=== PATIENT | female | born 1935 | race Hispanic/Latino ===

== ENCOUNTER 2018-03-23 17:34 | Inpatient (IN) | payer MEDICARE, OTHER ==
[2018-03-23] MEDS ORDERED: Albuterol-Ipratrop 3 mg / 0.5 (3 ml) UD IH STA (17:51)
--- NOTE | 2018-03-23 18:17 | ED PDOC ---
Arrival/HPI - General Chief Complaint: Shortness Of Breath Historian: Patient - History of Present Illness Narrative History of Present Illness (Text): 03/23/18 18:06 82 y/o F w/ h/o presenting to the Emergency Department with complaint of shortness of breath ongoing for the past 5 days. The patient reports productive cough with yellow-greenish sputum, intermittent fevers & chills and wheezing. She reports seeing her PCP on Sunday where he diagnosed her with bronchitis and provided her with a short course of Amoxicillin PO to take for her symptoms. Despite taking her medications, she reports no alleviation in her symptoms. She denies any chest pain, dizziness, emesis, abdominal pain, syncopal episodes, sinus pain, headache or falls recently. She reports receiving her influenza and pneumococcus vacciness. She denies recent travel or being on supplemental oxygen at home. The patient received one Duoneb treatment per EMS prior to arrival in the ED. PCP: Dr. Gautam Time/Duration: < week (6 days) Symptom Onset: Gradual Symptom Course: Unchanged Severity Level: Moderate Activities at Onset: Rest Context: Home Past Medical History - Provider Review Nursing Documentation Reviewed: Yes - Travel History Have you recently traveled outside [place] w/in the past 3 mons?: No - Cardiac Hx Hypertension: Yes - Pulmonary Hx Respiratory Disorders: No - Neurological Hx Neurological Disorder: No - HEENT Hx HEENT Disorder: No - Renal Hx Renal Disorder: No - Endocrine/Metabolic Hx Hypothyroidism: Yes - Hematological/Oncological Hx Blood Disorders: No - Integumentary Hx Dermatological Disorder: No - Musculoskeletal/Rheumatological Hx Musculoskeletal Disorders: Yes Hx Falls: Yes (RECENT ONE 01-16-16) Hx Fractures: Yes (RIGHT ANKLE FX WITH PINS,09-17-15 RIGHT HUMERAL FX FROM TRIPPING) Hx Unsteady Gait: Yes - Gastrointestinal Hx 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) - Genitourinary/Gynecological Hx Genitourinary Disorders: No - Psychiatric Hx Psychophysiologic Disorder: Yes (INSOMNIA) Hx Anxiety: Yes Hx Depression: Yes Hx Emotional Abuse: No Hx Post Traumatic Stress Disorder: Yes (H/O OF OF HER 5 YR OLD CHILD) Hx Physical Abuse: No Hx Substance Use: No - Surgical History Hx Orthopedic Surgery: Yes - Anesthesia Hx Anesthesia Reactions: No Hx Malignant Hyperthermia: No - Suicidal Assessment Feels Threatened In Home Enviroment: No Family/Social History - Physician Review Nursing Documentation Reviewed: Yes Family/Social History: Unknown Family HX Smoking Status: Never Smoked Hx Alcohol Use: No Hx Substance Use: No Allergies/Home Meds Allergies/Adverse Reactions: Allergies lactose Allergy (Verified 09/19/15 17:00) DIARRHEA Sulfa (Sulfonamide Antibiotics) Allergy (Verified 09/17/15 21:31) RASH Home Medications: Home Meds Medication Instructions Recorded Confirmed RX: Levothyroxine [Synthroid] 50 mcg PO DAILY 02/26/13 03/23/18 RX: Citalopram Hydrobromide 20 mg PO DAILY 09/17/15 03/23/18 [Celexa] RX: Eszopiclone [Lunesta] 2 mg PO HS 09/17/15 03/23/18 RX: Mirtazapine [Remeron] 15 mg PO HS 09/17/15 03/23/18 RX: Propranolol [Inderal LA] 80 mg PO HS 09/17/15 03/23/18 RX: hydroCHLOROthiazide 25 mg PO DAILY 03/23/18 03/23/18 [Hydrodiuril] Esomeprazole Magnesium [Nexium] 40 mg PO BID 03/24/18 03/24/18 Review of Systems - Physician Review All systems were reviewed & negative as marked: Yes - Review of Systems Constitutional: Fevers. absent: Fatigue Eyes: absent: Vision Changes ENT: absent: Hearing Changes, Rhinorrhea Respiratory: SOB, Cough, Sputum, Wheezing Cardiovascular: absent: Chest Pain, Palpitations, Edema Gastrointestinal: absent: Abdominal Pain, Stool Changes, Constipation Physical Exam Vital Signs Reviewed: Yes Appearance: Positive for: Well-Appearing, Non-Toxic, Comfortable Mental Status: Positive for: Alert and Oriented X 3 - Systems Exam Head: Present: Atraumatic, Normocephalic Pupils: Present: PERRL Extroacular Muscles: Present: EOMI Conjunctiva: Present: Normal Mouth: Present: Dry Neck: Present: Normal Range of Motion Respiratory/Chest: Present: Wheezes, Rhonchi, Tachypneic, Other (Able to speak in full sentences). No: Respiratory Distress Cardiovascular: Present: Regular Rate and Rhythm, Normal S1, S2. No: Murmurs Abdomen: Present: Normal Bowel Sounds. No: Tenderness, Distention Upper Extremity: Present: Normal Inspection. No: Cyanosis, Edema Lower Extremity: Present: Normal Inspection. No: Edema Neurological: Present: GCS=15, CN II-XII Intact, Speech Normal Skin: Present: Warm, Dry, Normal Color. No: Rashes Psychiatric: Present: Alert, Oriented x 3, Normal Insight, Normal Concentration Medical Decision Making ED Course and Treatment: 03/23/18 18:25 Impression 82F w/ shortness of breath and productive cough despite PO antibiotics Differential Diagnoses Includes But is Not Limited To: --Bronchitis --PNA --Viral lower respiratory Infection(influenza) Plan --Labs --Potassium PO --CTPE --Rocephin --Azithromycin --NSS --UA --CXR --Duonebs --Solumedrol --Reassess & disposition Progress Notes 03/23/18 18:57 Labs reviewed with no leukocytosis, but leftward shift noted. Will order m edications for CAP coverage. Pending chemistries and UA. Discussed case with Dr. Roberson(covering for Dr. Gautam) advises for CT chest w/o contrast for further evaluation of haziness at LLLB seen on CXR. 03/23/18 19:24 CT w/o contrast changed to CTPE for elevated D-dimer. Hypokalemia noted on chemi stries and will be repleted. - Lab Interpretations Lab Results: 03/23/18 18:44 03/23/18 18:44 Lab Results 03/23/18 18:50: Influenza Typ A,B (EIA) Negative for flu a/b 03/23/18 18:50: PT 14.6 H, INR 1.27, APTT 23.2 L, D-Dimer, Quantitative 795 H 03/23/18 18:44: Sodium 134, Chloride 95 L, Potassium 3.2 L, Carbon Dioxide 31, Anion Gap 11, BUN 13, Creatinine 0.6 L, Est GFR ( Amer) > 60, Est GFR (Non-Af Amer) > 60, Random Glucose 116 H, Calcium 8.7, Magnesium 1.9, Total Bilirubin 0.6, AST 71 H, ALT 45, Alkaline Phosphatase 97, Troponin I < 0.01, NT-Pro-B Natriuret Pep 613 H, Total Protein 7.3, Albumin 3.7, Globulin 3.6, Albumin/Globulin Ratio 1.0 L 03/23/18 18:44: pO2 103 H, VBG pH 7.46 H, VBG pCO2 42.0, VBG HCO3 29.9 H, VBG Total CO2 31.2 H, VBG O2 Sat (Calc) 99.6 H, VBG Base Excess 5.4 H, VBG Potassium 3.0 L, Sodium 134.0, Chloride 95.0 L, Glucose 113 H, Lactate 1.1, FiO2 21.0, Venous Blood Potassium 3.0 L 03/23/18 18:44: WBC 9.2, RBC 4.14, Hgb 12.3, Hct 38.5, MCV 93.0, MCH 29.7, MCHC 31.9, RDW 13.7, Plt Count 278, MPV 9.1, Gran % 81.8 H, Lymph % (Auto) 11.8 L, [place] % (Auto) 5.4, Eos % (Auto) 0.9 L, Baso % (Auto) 0.1, Gran # 7.56 H, Lymph # (Auto) 1.1 L, [place] # (Auto) 0.5, Eos # (Auto) 0.1, Baso # (Auto) 0.01 I have reviewed the lab results: Yes - RAD Interpretation Radiology Orders: 03/23/18 17:56 CHEST PORTABLE [RAD] Stat - EKG Interpretation EKG Interpretation (Text): 03/23/18 19:01 NSR at 87 bpm Intermittent PVCs No [address] elevation/depression Prolonged QT interval - Medication Orders Current Medication Orders: Methylprednisolone (Solu-Medrol) 125 mg IVP STAT STA Stop: 03/23/18 18:05 Discontinued Medications Albuterol/Ipratropium (Duoneb 3 Mg/0.5 Mg (3 Ml) Ud) 3 ml IH STAT STA Stop: 03/23/18 17:52 Disposition/Present on Arrival - Present on Arrival Any Indicators Present on Arrival: No History of DVT/PE: No History of Uncontrolled Diabetes: No Urinary Catheter: No History of Decub. Ulcer: No History Surgical Site Infection Following: None - Disposition Have Diagnosis and Disposition been Completed?: Yes Diagnosis: Bronchitis Disposition: HOSPITALIZED Disposition Time: 18:58 Patient Plan: Admission Patient Problems: Current Active Problems Problem Status Onset Bronchitis Acute Condition: GUARDED
[2018-03-23] MEDS ORDERED: Albuterol 0.083% Inhal Sol (2.5 mg/3 mL) UD INH STA (18:50)
[2018-03-23 18:53] LABS: BASO # 0.01 K/mm3 (0.0-2.0); BASO % 0.1 % (0.0-3.0); EOS # 0.1 (0.0-0.7); EOS % 0.9 % (1.5-5.0); GRAN # 7.56 (1.4-6.5); GRAN % 81.8 % (50.0-68.0); HEMOGLOBIN 12.3 g/dL (12.0-16.0); LYMPH # 1.1 (1.2-3.4); LYMPH % 11.8 % (22.0-35.0); MEAN CORPUSCULAR HEMOGLOBIN 29.7 pg (25.0-35.0); MEAN CORPUSCULAR HGB CONC 31.9 g/dl (31.0-37.0); MEAN PLATELET VOLUME 9.1 fl (7.0-11.0); MONO # 0.5 (0.1-0.6); MONO % 5.4 % (1.0-6.0); RBC 4.14 10^6/uL (3.5-6.1); RED CELL DISTRIBUTION WIDTH 13.7 % (11.5-14.5); WHITE BLOOD COUNT 9.2 10^3/uL (4.5-11.0)
[2018-03-23] MEDS ORDERED: cefTRIAXone 1 gm 1 GM/100 ML BAG IVPB STA (18:59)
[2018-03-23] MEDS ORDERED: Azithromycin 500MG/NS 250ml 500 MG/250 ML BAG IVPB STA (18:59)
[2018-03-23 19:10] LABS: VENOUS BLOOD GAS BASE EXCESS 5.4 mmol/L (0.0-2.0); VENOUS BLOOD GAS PO2 103 mm/Hg (30-55); VENOUS BLOOD PH 7.46 (7.32-7.43)
[2018-03-23 19:13] LABS: ALBUMIN 3.7 g/dL (3.0-4.8); ALT/SGPT 45 U/L (7-56); AST/SGOT 71 U/L (14-36); BLOOD UREA NITROGEN 13 mg/dL (7-21); CALCIUM 8.7 mg/dL (8.4-10.5); GFR NON-AFRICAN AMERICAN > 60
[2018-03-23] MEDS ORDERED: Potassium Chloride 40 mEq/30 ml LIQ UD PO STA (19:17)
[2018-03-23 19:20] LABS: INR 1.27; PARTIAL THROMBOPLASTIN TIME 23.2 Seconds (25.1-36.5); PROTHROMBIN TIME 14.6 SECONDS (9.4-12.5)
[2018-03-23 19:30] LABS: B-TYPE NATRIURETIC PEPTIDE 613 pg/mL (0-450); TROPONIN I < 0.01 ng/mL
[2018-03-23] MEDS: Albuterol-Ipratrop 3 mg / 0.5 (3 ml) UD IH SCH (21:41)
[2018-03-23] MEDS: MethylPREDNISolone 40 mg Vial IV SCH (22:06)
[2018-03-23] MEDS: Albuterol-Ipratrop 3 mg / 0.5 (3 ml) UD IH PRN (23:20)
[2018-03-23] MEDS: Propranolol 80 mg ER Cap PO SCH (23:32)
[2018-03-24] MEDS: Albuterol-Ipratrop 3 mg / 0.5 (3 ml) UD IH SCH ×5 (01:24→20:01)
--- NOTE | 2018-03-24 03:59 | HP ---
DATE OF EXAM: 03/23/2018 HISTORY OF PRESENT ILLNESS: Patient is an 82-year-old sent to emergency room because of increasing shortness of breath. She has been having cough with audible wheezing. She went to see Dr. Gautam, who gave her antibiotics with no significant relief. She is having intermittent fever and chills. She saw Dr. Gautam on Sunday, who gave her amoxicillin and promethazine with no relief, so she came to the ER for further evaluation. No chest pain, no complain upper chest pain or chest tightness and no history of nausea or vomiting. No recent travel or sick contact. PAST MEDICAL HISTORY: Significant for: 1. Hypertension. 2. Hypothyroidism. 3. Hyperlipidemia. 4. History of depression. 5. History of fall in 2016 and had humerus fracture and was treated conservatively. ALLERGIES: SHE IS ALLERGIC TO LACTOSE AND SULFONAMIDES. MEDICATION AT HOME: She is on hydrochlorothiazide, propranolol 80 mg, Remeron 15 mg at bedtime, levothyroxine 50 mcg daily, Lunesta mg at bedtime, Celexa 20 mg daily and Xanax 0.25 q.i.d. SOCIAL HISTORY: Denies smoking,drinking, or alcohol use. PHYSICAL EXAMINATION: GENERAL: She is awake, alert, oriented and communicative. VITAL SIGNS: She is afebrile, pulse 87, respirations 20, blood pressure 122/65. LUNGS: Bilateral expiratory rhonchi. HEART: S1 and S2 audible. ABDOMEN: Soft, nontender. No rebound. No guarding. NEUROLOGIC: The patient is awake, alert, oriented, and able to communicate. LABORATORY EXAMINATION: WBC is 9.2, hemoglobin 12.3, hematocrit 38.5, platelets 278. PT 14.6. INR 1.29. PTT 23.2, D-dimer 795. Chemistry: Sodium 134, potassium 3.2, chloride 95, CO2 of 31, BUN 13, creatinine 0.6. Blood sugar of 116. AST 71, ALT 45, BNP 613. Flu test is negative. X-ray chest is unremarkable. ASSESSMENT: 1. Asthmatic bronchitis. 2. History of hypertension. 3. Failed outpatient treatment. 4. Hypothyroidism. 5. Hyperlipidemia. PLAN: So plan is, the patient has positive d-dimer. We will get CT angio done since the d-dimer is high. We will start her on nebulizer treatment. Start her on IV fluid, IV antibiotics, and IV steroid. We will reevaluate in the a.m. Vern Roberson MD
[2018-03-24 05:01] VITALS: BMI 16.0
[2018-03-24] MEDS: Pantoprazole 40 mg EC Tab PO SCH (06:41)
[2018-03-24] MEDS: Levothyroxine 50 MCG TAB PO SCH (06:41)
[2018-03-24 08:11] LABS: BASO # 0.01 K/mm3 (0.0-2.0); BASO % 0.1 % (0.0-3.0); GRAN # 9.33 (1.4-6.5); GRAN % 86.3 % (50.0-68.0); HEMOGLOBIN 12.4 g/dL (12.0-16.0); LYMPH # 1.3 (1.2-3.4); LYMPH % 11.8 % (22.0-35.0); MEAN CELL VOLUME 93.6 fl (80.0-105.0); MEAN CORPUSCULAR HEMOGLOBIN 29.4 pg (25.0-35.0); MEAN CORPUSCULAR HGB CONC 31.4 g/dl (31.0-37.0); MEAN PLATELET VOLUME 9.3 fl (7.0-11.0); MONO # 0.2 (0.1-0.6); MONO % 1.8 % (1.0-6.0); RBC 4.22 10^6/uL (3.5-6.1); RED CELL DISTRIBUTION WIDTH 13.8 % (11.5-14.5); WHITE BLOOD COUNT 10.8 10^3/uL (4.5-11.0)
[2018-03-24 09:00] LABS: ALBUMIN 3.6 g/dL (3.0-4.8); ALT/SGPT 54 U/L (7-56); AST/SGOT 79 U/L (14-36); BLOOD UREA NITROGEN 15 mg/dL (7-21); CALCIUM 9.2 mg/dL (8.4-10.5); GFR NON-AFRICAN AMERICAN > 60
[2018-03-24] MEDS: cefTRIAXone 1 gm 1 GM/100 ML BAG IVPB SCH (09:27)
[2018-03-24] MEDS: MethylPREDNISolone 40 mg Vial IV SCH ×2 (09:27→22:09)
--- NOTE | 2018-03-24 10:58 | RAD ---
HISTORY: shortness of breath COMPARISON: Chest x-ray performed 09/17/15 TECHNIQUE: Chest, one view. FINDINGS: LUNGS: Mild patchy opacity at the left lung base may reflect atelectasis or developing infiltrate. Please note that chest x-ray has limited sensitivity for the detection of pulmonary masses. PLEURA: No significant pleural effusion identified. No definite pneumothorax . CARDIOVASCULAR: Cardiomegaly. OSSEOUS STRUCTURES: Degenerative changes. VISUALIZED UPPER ABDOMEN: Unremarkable. OTHER FINDINGS: Surgical clips noted right axilla. IMPRESSION: Mild patchy opacity at the left lung base may reflect atelectasis or developing infiltrate. Correlate clinically. Cardiomegaly. Study marked for PA review.
[2018-03-24] MEDS: Azithromycin 500MG/NS 250ml 500 MG/250 ML BAG IVPB SCH (11:10)
--- NOTE | 2018-03-24 12:49 | CT ---
Date of service: 03/23/2018 CTA chest PE protocol Indication: SOB w/ elevated D-dimer Technique: Contiguous axial images were obtained through the chest with intravenous contrast enhancement. Sagittal and coronal reconstructions were generated and reviewed. This CT exam was performed using 1 or more of the following dose reduction techniques: Automated exposure control, adjustment of the MAA and/or kV according to patient size, and/or use of iterative reconstruction technique. IV contrast: 150 mL Omnipaque 350 IV Radiation dose (DLP): 448.34 MGy-cm. Comparison: Chest x-ray performed 03/23/18 Findings: Visualized portions of the inferior thyroid gland appear unremarkable. The mediastinal and hilar vascular structures appear within normal limits. The heart appears within normal limits of size. Dense coronary artery calcifications. Trace pericardial effusion. Sub cm mediastinal and prevascular lymph nodes, nonspecific. Right hilar lymph node measures approximately 1 cm in short axis. Right paratracheal lymph node measures approximately 11 cm in short axis. There is suboptimal opacification of the pulmonary arteries limiting evaluation for pulmonary embolus. Given this limitation, there are no visible intraluminal filling defects within the central pulmonary arteries to suggest central pulmonary embolism. Patchy bilateral infiltrates involving the right upper lobe and lingula with multifocal pneumonia. Small bilateral pleural effusions. Bibasilar dependent consolidations. No pneumothorax. Large hiatal hernia. Thickening of the gastric wall of unclear significance. Gastroesophageal ingested debris may be related to reflux. Limited visualized portions of the upper abdomen appear grossly unremarkable. Degenerative changes. T11 compression fracture deformity, age indeterminate. Loss of height of T7 vertebral body. Impression: Suboptimal opacification the pulmonary arteries. Given this limitation no visible intraluminal filling defects within the central pulmonary arteries to suggest central pulmonary embolus. Patchy bilateral pulmonary infiltrates predominantly involving the right upper lobe and lingula consistent with multifocal pneumonia. Small bilateral pleural effusions. Bibasilar dependent consolidations. Large hiatal hernia. Thickening of the gastric wall of unclear significance. Gastroesophageal ingested debris may be related to reflux. T11 compression fracture deformity with mild retropulsion, age indeterminate. Loss of height of T7 vertebral body. Preliminary impression was provided by [employer].
[2018-03-24] MEDS: Promethazine DM 6.25 mg-15 mg/5 ml Syrup PO PRN (18:26)
--- NOTE | 2018-03-24 18:52 | CARD ---
APPROVED REPORT Date of service: 03/23/2018 EKG Measurement Heart [id number] <Conclusion> Sinus rhythm with occasional premature ventricular complexes Inferior infarct, age undetermined Prolonged QT Abnormal ECG
--- NOTE | 2018-03-24 20:17 | PN ---
DATE: 03/24/2018 SUBJECTIVE: The patient is 82-year-old, seen and examined, still complaining of cough, congestion, and rattling in her chest. She states she is a little bit better as compared to last night. Cough seems to be a little better. PHYSICAL EXAMINATION VITAL SIGNS: She is afebrile, pulse 64, respirations 18, blood pressure 134/69. LUNGS: Bilateral soft crackles in the upper lung region. HEART: S1 and S2 audible. ABDOMEN: Soft, nontender. No rebound. No guarding. NEUROLOGICAL: The patient is awake, alert, oriented, communicative. Moves all extremities. LABORATORY EXAM: WBC is 10.8, hemoglobin 12.4, hematocrit 39.5, platelets 295. Chemistry: Sodium 137, potassium 3.9, chloride 99, CO2 of 30, BUN 15, creatinine 0.7, blood sugar 169. Flu test is negative. CT angio was done because of high D-dimer, which shows bilateral pulmonary infiltrates, predominantly involving the right upper lobe and lingula, consistent with multifocal pneumonia and with bilateral pleural effusions. The patient also had large hiatal hernia with thickening of the gastric wall and with related to reflux and also has T11 compression fracture. ASSESSMENT: 1. Failed outpatient treatment. 2. Multifocal pneumonia. 3. Hypertension. 4. History of anxiety disorder. 5. Hypothyroidism. 6. Degenerative disk disease. 7. Gastroesophageal reflux disease. PLAN: Currently, the patient is on Rocephin and the patient is getting nebulizer treatment. She is requesting for Ambien that will be given tonight. She is getting nebulizer treatment every 6 hours. Her usual medications including propranolol has been resumed. We will continue on Rocephin. She is on IV steroid, and we will continue her on Zithromax, and she will be followed closely. Physical therapy evaluation will be requested also. Vern Roberson MD
[2018-03-24] MEDS: Propranolol 80 mg ER Cap PO SCH (22:10)
[2018-03-25] MEDS: Albuterol-Ipratrop 3 mg / 0.5 (3 ml) UD IH SCH ×4 (01:38→19:48)
[2018-03-25] MEDS: Pantoprazole 40 mg EC Tab PO SCH (08:43)
[2018-03-25] MEDS: Levothyroxine 50 MCG TAB PO SCH (08:43)
[2018-03-25] MEDS: Azithromycin 500MG/NS 250ml 500 MG/250 ML BAG IVPB SCH (09:26)
[2018-03-25] MEDS: MethylPREDNISolone 40 mg Vial IV SCH ×2 (09:26→09:40)
[2018-03-25] MEDS: cefTRIAXone 1 gm 1 GM/100 ML BAG IVPB SCH (09:26)
[2018-03-25] MEDS ORDERED: Loperamide Hydrochloride 1 mg/5 ml Cup PO SCH (10:00)
[2018-03-25 13:29] VITALS: O2SAT 92
--- NOTE | 2018-03-25 14:48 | CP.PCM.PCO ---
Physician Communication Note - Physician Communication Note Physician Communication Note: patient for TCU 03/26/18
--- NOTE | 2018-03-25 14:57 | PN ---
DATE: 03/25/2018 SUBJECTIVE: The patient has no complaints of any chest pain or shortness of breath. No headaches or dizziness. She says she is feeling better, her breathing is better. PHYSICAL EXAMINATION: VITAL SIGNS: Temperature is 98, pulse of 66, blood pressure 143/67, respirations 20. GENERAL: The patient is lying in bed, flat, comfortable. HEENT: No oral lesion. Anicteric sclerae. Moist mucosa. NECK: No JVD, adenopathy, or thyromegaly. CARDIOVASCULAR: S1 and S2, regular. No murmurs, rubs, or gallops. LUNGS: Clear to auscultation bilaterally. No wheeze, rales, or rhonchi. ABDOMEN: Bowel sounds are positive, soft, nontender and nondistended. EXTREMITIES: No cyanosis, clubbing or edema. ASSESSMENT: 1. Community acquired pneumonia, right upper lobe and lingula multifocal. 2. Hiatal hernia. 3. T11 compression fracture. 4. Osteoporosis. 5. Hypertension. 6. Hypothyroidism. 7. Degenerative joint disease. 8. Gastroesophageal reflux disease. 9. Obese with a body mass index of 36. PLAN: The patient is currently on Ambien for sleep, she is going to be on Celexa for her anxiety. She is on albuterol. She is receiving Remeron for her anxiety. She is on steroids daily. She is on Synthroid for hypothyroidism. She is receiving Tylenol as needed. She is on Xanax for her anxiety as well. I will decrease her steroids. She is agreeable to go to physical therapy. She is going to need TCU evaluation as well. Jeffery Musa MD
[2018-03-25] MEDS: Albuterol-Ipratrop 3 mg / 0.5 (3 ml) UD IH PRN (15:32)
[2018-03-25] MEDS: Propranolol 80 mg ER Cap PO SCH (22:15)
[2018-03-26] MEDS: Albuterol-Ipratrop 3 mg / 0.5 (3 ml) UD IH SCH ×3 (01:30→13:42)
[2018-03-26] MEDS: Pantoprazole 40 mg EC Tab PO SCH (06:01)
[2018-03-26 07:00] LABS: HEMOGLOBIN 11.3 g/dL (12.0-16.0); MEAN CORPUSCULAR HEMOGLOBIN 29.5 pg (25.0-35.0); MEAN PLATELET VOLUME 8.9 fl (7.0-11.0); RBC 3.83 10^6/uL (3.5-6.1); RED CELL DISTRIBUTION WIDTH 14.3 % (11.5-14.5); WHITE BLOOD COUNT 16.4 10^3/uL (4.5-11.0)
[2018-03-26 07:37] LABS: ALBUMIN 3.2 g/dL (3.0-4.8); ALT/SGPT 84 U/L (7-56); AST/SGOT 81 U/L (14-36); BLOOD UREA NITROGEN 19 mg/dL (7-21); GFR NON-AFRICAN AMERICAN > 60
[2018-03-26] MEDS: MethylPREDNISolone 40 mg Vial IV SCH (09:28)
[2018-03-26] MEDS: Levothyroxine 50 MCG TAB PO SCH (09:29)
[2018-03-26] MEDS: cefTRIAXone 1 gm 1 GM/100 ML BAG IVPB SCH (09:29)
[2018-03-26] MEDS: Azithromycin 500MG/NS 250ml 500 MG/250 ML BAG IVPB SCH (09:30)
[2018-03-26] MEDS: Promethazine DM 6.25 mg-15 mg/5 ml Syrup PO PRN (09:39)
[2018-03-26] MEDS ORDERED: Calcium-Vit D 250 mg-125 Units Tab UD PO SCH (11:15)
[2018-03-26 12:11] LABS: URINE APPEARANCE CLEAR (CLEAR); URINE BILIRUBIN NEGATIVE (NEGATIVE); URINE BLOOD NEGATIVE (NEGATIVE); URINE COLOR YELLOW (YELLOW); URINE GLUCOSE (UA) NEGATIVE (NEGATIVE); URINE LEUKOCYTE ESTERASE NEGATIVE Leu/uL (NEGATIVE); URINE PROTEIN NEGATIVE mg/dL (<30 mg/dL); URINE UROBILINOGEN 0.2 E.U./dL (<1 E.U./dL)
[2018-03-26 12:25] VITALS: BP 143/75; PULSE 63; RESP 19; TEMP 98.5
--- NOTE | 2018-03-26 21:46 | DS ---
HISTORY OF PRESENT ILLNESS: This is an 82-year-old female who has come into the hospital complaining of shortness of breath. She was found to have a multilobar pneumonia. She was given IV antibiotics. She had improvement of her symptoms. The patient was seen by physical therapy and it is recommended that she go to the transitional care unit. The patient is currently comfortable. She has no complaints of any headache, dizziness. No nausea. PHYSICAL EXAMINATION: VITAL SIGNS: Temperature 98, pulse 52, blood pressure 145/75, respirations 18. GENERAL: The patient lying in bed, uncomfortable, and in no acute distress. HEENT: Atraumatic and normocephalic. Anicteric sclerae. Moist mucosa. [place] conjunctivae. No oral lesions. NECK: No JVD, anterior and posterior adenopathy, thyromegaly, or bruits. CARDIOVASCULAR: S1 and S2 regular. No murmur, rubs, or gallop. LUNGS: Clear to auscultation bilaterally. No wheezes, rales, or rhonchi. ABDOMEN: Bowel sounds are positive. Soft, nontender and nondistended. No hepatosplenomegaly. No rebound and no guarding EXTREMITIES: No cyanosis, clubbing, or edema. NEUROLOGIC: No facial asymmetry. Tongue is midline. No vulva deviation. Power is 5/5 upper extremity and lower extremity. Sensation intact in upper extremity and lower extremity. PSYCHIATRIC: She is awake, alert and oriented x3. No anxiety or depression. She has normal affect. GENITOURINARY: No CVA tenderness. VASCULAR: 2+ pulses in the carotid pulses and pedal pulses. SKIN: No erythema or nodules SPINE: Shows normal curvature. ASSESSMENT: 1. Community-acquired pneumonia, multilobar, multifocal right upper lobe and lingula. 2. Hiatal hernia. 3. T11 compression fracture. 4. Osteoporosis. 5. Hypertension. 6. Hypothyroidism. 7. Degenerative joint disease. 8. Gastroesophageal reflux disease. 9. Obesity with body mass index of 36. PLAN: The patient is currently on Ambien for sleep. She is going to continue with citalopram 20 mg for anxiety. She is going to be on propranolol. She is on promethazine for cough. She is on Protonix for reflux. She is on mirtazapine for her anxiety as well. She is on Rocephin for antibiotics. She is on Synthroid for hypothyroidism. I will place the patient on calcium and vitamin D to help with her osteoporosis. She is going to be going to transitional care unit. CONDITION: Stable. ACTIVITY: Increase as tolerated. Jeffery Musa MD
== END 2018-03-26 16:23 | DRG 194 ==
LOC: ED 17:34 → ERH 19:09 → 2RNO 23:04
PROVIDERS: ADMIT Internal Medicine; ATTEND Internal Medicine Nephrology
DX: J18.9 Pneumonia, unspecified organism (principal); M48.54XA Collapsed vertebra, not elsewhere classified, thoracic region, initial encounter for fracture; J20.9 Acute bronchitis, unspecified; I10 Essential (primary) hypertension; E03.9 Hypothyroidism, unspecified; F32.9 Major depressive disorder, single episode, unspecified; E87.6 Hypokalemia; F43.10 Post-traumatic stress disorder, unspecified; E66.9 Obesity, unspecified; Z68.36 Body mass index [BMI] 36.0-36.9, adult; E78.5 Hyperlipidemia, unspecified; K21.9 Gastro-esophageal reflux disease without esophagitis; K44.9 Diaphragmatic hernia without obstruction or gangrene; M81.0 Age-related osteoporosis without current pathological fracture; M19.90 Unspecified osteoarthritis, unspecified site; Z91.81 History of falling; Z87.81 Personal history of (healed) traumatic fracture; Z88.2 Allergy status to sulfonamides; E73.9 Lactose intolerance, unspecified

== ENCOUNTER 2018-03-26 16:23 | Inpatient (IN) | payer OTHER ==
[2018-03-26] MEDS ORDERED: Albuterol-Ipratrop 3 mg / 0.5 (3 ml) UD IH PRN (17:04)
[2018-03-26] MEDS: Promethazine DM 6.25 mg-15 mg/5 ml Syrup PO PRN (19:20)
[2018-03-26] MEDS: Albuterol-Ipratrop 3 mg / 0.5 (3 ml) UD IH SCH (21:00)
[2018-03-26 21:26] VITALS: BMI 36.7
[2018-03-26] MEDS: Propranolol 80 mg ER Cap PO SCH (22:03)
[2018-03-27] MEDS: Albuterol-Ipratrop 3 mg / 0.5 (3 ml) UD IH SCH ×4 (03:15→19:45)
[2018-03-27] MEDS: Pantoprazole 40 mg EC Tab PO SCH (05:14)
[2018-03-27] MEDS: Levothyroxine 50 MCG TAB PO SCH (05:14)
[2018-03-27] MEDS ORDERED: cefTRIAXone 1 gm 1 GM/100 ML BAG IVPB SCH (06:00)
[2018-03-27] MEDS ORDERED: Azithromycin 500MG/NS 250ml 500 MG/250 ML BAG IVPB SCH (06:00)
[2018-03-27 07:11] LABS: BASO # 0.03 K/mm3 (0.0-2.0); BASO % 0.3 % (0.0-3.0); EOS # 0.1 (0.0-0.7); EOS % 0.5 % (1.5-5.0); GRAN # 6.98 (1.4-6.5); GRAN % 66.1 % (50.0-68.0); HEMOGLOBIN 11.9 g/dL (12.0-16.0); LYMPH # 2.8 (1.2-3.4); LYMPH % 26.9 % (22.0-35.0); MEAN CELL VOLUME 96.1 fl (80.0-105.0); MEAN CORPUSCULAR HEMOGLOBIN 29.2 pg (25.0-35.0); MEAN CORPUSCULAR HGB CONC 30.4 g/dl (31.0-37.0); MEAN PLATELET VOLUME 8.8 fl (7.0-11.0); MONO # 0.7 (0.1-0.6); MONO % 6.2 % (1.0-6.0); RBC 4.08 10^6/uL (3.5-6.1); RED CELL DISTRIBUTION WIDTH 14.2 % (11.5-14.5); WHITE BLOOD COUNT 10.6 10^3/uL (4.5-11.0)
[2018-03-27 07:39] LABS: ALBUMIN 3.2 g/dL (3.0-4.8); ALT/SGPT 69 U/L (7-56); AST/SGOT 39 U/L (14-36); BLOOD UREA NITROGEN 13 mg/dL (7-21); GFR NON-AFRICAN AMERICAN > 60
[2018-03-27] MEDS: Calcium-Vit D 250 mg-125 Units Tab UD PO SCH (09:47)
[2018-03-27] MEDS ORDERED: MethylPREDNISolone 40 mg Vial IVP SCH (10:00)
[2018-03-27] MEDS: Promethazine DM 6.25 mg-15 mg/5 ml Syrup PO PRN ×2 (11:07→21:36)
--- NOTE | 2018-03-27 17:17 | HP ---
DATE OF EXAM: 03/27/2018 HISTORY OF PRESENT ILLNESS: This is an 82-year-old female who is coming into the hospital after she failed outpatient treatment for upper respiratory tract infection. The patient had a chest x-ray that showed multilobar pneumonia. She was started on IV antibiotics, had improvement of her symptoms and then was transferred to the Transitional Care Unit for rehab. The patient says that she is feeling better. She has no complaints of any chest pain or shortness of breath. Her cough has improved. She has no nausea, no vomiting, no dysuria, no frequency, no nocturia. She had been seen Dr. Gautam, who had initially prescribed her antibiotics. She is unsteady on her feet, but has started to work with physical therapy. All other review of symptoms are within normal limits except as mentioned. ALLERGIES: NO KNOWN DRUG ALLERGIES. HOME MEDICATIONS: Hydrochlorothiazide, propranolol, Remeron, levothyroxine, Lunesta, Celexa and Xanax. PAST MEDICAL HISTORY: 1. Hypertension. 2. Hypothyroidism. 3. Hyperlipidemia. 4. Depression. 5. Fall. FAMILY HISTORY: Noncontributory. SOCIAL HISTORY: She denies smoking, drink no alcohol. PHYSICAL EXAMINATION: VITAL SIGNS: She has a temperature of 98, pulse is 65, blood pressure is 129/73, respirations 20. Height is 4 feet 11 inches, weight is 182 pounds, BMI is 36.8. HEENT: Atraumatic and normocephalic. Anicteric sclerae. Moist mucosa. [place] conjunctivae. No oral lesions. NECK: No JVD, anterior and posterior adenopathy, thyromegaly, or bruits. CARDIOVASCULAR: S1 and S2 regular. No murmur, rubs, or gallop. LUNGS: Clear to auscultation bilaterally. No wheezes, rales, or rhonchi. ABDOMEN: Bowel sounds are positive. Soft, nontender and nondistended. No hepatosplenomegaly. No rebound and no guarding. EXTREMITIES: No cyanosis, clubbing, or edema. NEUROLOGIC: No facial asymmetry. Tongue is midline. No vulva deviation. Power is 5/5 upper extremity and lower extremity. Sensation intact in upper extremity and lower extremity. PSYCHIATRIC: She is awake, alert and oriented x3. No anxiety or depression. She has normal affect. GENITOURINARY: No CVA tenderness. VASCULAR: 2+ pulses in the carotid pulses and pedal pulses. SKIN: No erythema or nodules. SPINE: Shows normal curvature. LABORATORY DATA: White count of 7.6, hemoglobin 11.9, platelet count is 375. Chemistry shows a potassium is 3.3, AST and ALT is [address] of the chest done on admission to the hospital showed T11 compression fracture. There was a large hiatal hernia, there was patchy pulmonary infiltrate predominantly involving the right upper lobe and lingula consistent of pneumonia. The patient's EKG showed sinus rhythm at 7, QTC is [address] changes. ASSESSMENT: 1. Community-acquired pneumonia, multilobar. 2. Hiatal hernia. 3. T11 compression fracture. 4. Osteoporosis. 5. Hypertension. 6. Hypothyroidism. 7. Degenerative joint disease. 8. Gastroesophageal reflux disease. 9. Obesity with a body mass index of 36. PLAN: The patient is currently comfortable. She is on Ambien for sleep. She is receiving citalopram for anxiety. She is on nebulizer treatments. She is going to continue with her nebulizer treatments. She is on propranolol. She is on calcium and vitamin D for her osteoporosis. She is on Protonix daily. She is Remeron. She is on Rocephin for antibiotics. She is on Synthroid for hypothyroidism. She is on Zithromax. I will discontinue her Zofran. She is on a heart-healthy diet. Her transaminitis is improving and her diarrhea is improving. I will change her IV antibiotics over to p.o. Jeffery Musa MD (Delete this signature block when dictator is a preceptor.)
[2018-03-27] MEDS: Propranolol 80 mg ER Cap PO SCH (21:37)
[2018-03-28] MEDS: Pantoprazole 40 mg EC Tab PO SCH (05:14)
[2018-03-28] MEDS: Levothyroxine 50 MCG TAB PO SCH (05:14)
[2018-03-28] MEDS ORDERED: cefTRIAXone 1 gm 1 GM/100 ML BAG IVPB SCH (06:00)
[2018-03-28] MEDS ORDERED: Azithromycin 500MG/NS 250ml 500 MG/250 ML BAG IVPB SCH (06:00)
[2018-03-28] MEDS: Albuterol-Ipratrop 3 mg / 0.5 (3 ml) UD IH SCH ×2 (07:06→20:54)
[2018-03-28] MEDS: Calcium-Vit D 250 mg-125 Units Tab UD PO SCH (09:07)
[2018-03-28] MEDS: Amoxicillin-Clav 875-125 mg Tab PO SCH ×2 (09:07→21:22)
[2018-03-28] MEDS: Nystatin 100,000 Units/ml Oral Susp 5 ml UD PO SCH ×4 (09:08→21:22)
--- NOTE | 2018-03-28 10:16 | PN ---
DATE: 03/28/2018 SUBJECTIVE: The patient has no complaints of any chest pain. No shortness of breath. No headaches or dizziness. PHYSICAL EXAMINATION: VITAL SIGNS: Temperature is 98.5, pulse is 67, blood pressure 147/79 and respiration is 20. GENERAL: The patient is lying in bed, flat, comfortable. HEENT: No oral lesion. Anicteric sclerae. Moist mucosa. Mouth; there is thrush on the right side of her cheeks in the inside of her mouth. NECK: No JVD, adenopathy, or thyromegaly. CARDIOVASCULAR: S1 and S2, regular. No murmurs, rubs, or gallops. LUNGS: Clear to auscultation bilaterally. No wheeze, rales, or rhonchi. ABDOMEN: Bowel sounds are positive, soft, nontender and nondistended. EXTREMITIES: no cyanosis, clubbing or edema. ASSESSMENT: 1. Hypokalemia. 2. Community acquired pneumonia, multilobar. 3. Hiatal hernia. 4. T11 compression fracture. 5. Thrush. 6. Osteoporosis. 7. Hypertension. 8. Hypothyroidism. 9. Degenerative joint disease. 10. Gastroesophageal reflux disease. 11. Obese with a body mass index of 36. PLAN: The patient is currently on Augmentin for antibiotics orally. She is on Ambien for sleep. She is receiving Celexa for anxiety. She is on DuoNebs twice a day. She is on propranolol daily. She is on amlodipine for her hypertension. She is on calcium for her osteoporosis. She is going to continue with Protonix for her GERD. She is on mirtazapine for anxiety. She is on Solu-Medrol, I will change that too p.o. steroids. She is on Synthroid for hypothyroidism. She is receiving Zithromax as well for her antibiotics. She is getting better with physical therapy. Jeffery Musa MD
[2018-03-28] MEDS: Promethazine DM 6.25 mg-15 mg/5 ml Syrup PO PRN (17:18)
[2018-03-28] MEDS: Propranolol 80 mg ER Cap PO SCH (21:22)
[2018-03-29] MEDS: Pantoprazole 40 mg EC Tab PO SCH (05:17)
[2018-03-29] MEDS: Levothyroxine 50 MCG TAB PO SCH (05:18)
[2018-03-29 06:37] LABS: HEMOGLOBIN 11.7 g/dL (12.0-16.0); MEAN CELL VOLUME 94.4 fl (80.0-105.0); MEAN CORPUSCULAR HEMOGLOBIN 29.7 pg (25.0-35.0); MEAN CORPUSCULAR HGB CONC 31.5 g/dl (31.0-37.0); MEAN PLATELET VOLUME 8.9 fl (7.0-11.0); RBC 3.94 10^6/uL (3.5-6.1); RED CELL DISTRIBUTION WIDTH 14.1 % (11.5-14.5); WHITE BLOOD COUNT 9.6 10^3/uL (4.5-11.0)
[2018-03-29 07:33] LABS: ALBUMIN 3.1 g/dL (3.0-4.8); ALT/SGPT 43 U/L (7-56); AST/SGOT 50 U/L (14-36); BLOOD UREA NITROGEN 16 mg/dL (7-21); GFR NON-AFRICAN AMERICAN > 60
[2018-03-29] MEDS: Albuterol-Ipratrop 3 mg / 0.5 (3 ml) UD IH SCH ×2 (08:02→20:28)
[2018-03-29] MEDS ORDERED: Potassium Chloride 20 mEq ER Tab PO ONE ×2 (09:19→20:00)
--- NOTE | 2018-03-29 10:23 | PN ---
DATE: 03/29/2018 SUBJECTIVE: The patient has no complaints of any chest pain or shortness of breath or headaches. She says her breathing is better. She was sitting in a chair when I evaluated her today. PHYSICAL EXAMINATION: VITAL SIGNS: Temperature is 98.1, pulse of 65, blood pressure 145/81, respirations 20. GENERAL: The patient is lying in bed, flat, comfortable. HEENT: No oral lesion. Anicteric sclerae. Moist mucosa. NECK: No JVD, adenopathy, or thyromegaly. CARDIOVASCULAR: S1 and S2, regular. No murmurs, rubs, or gallops. LUNGS: Clear to auscultation bilaterally. No wheeze, rales, or rhonchi. ABDOMEN: Bowel sounds are positive, soft, nontender and nondistended. EXTREMITIES: No cyanosis, clubbing or edema. LABORATORY DATA: White count of 9.6, hemoglobin 11.7, potassium 3.1. ASSESSMENT: 1. Hypokalemia. 2. Community-acquired pneumonia, multilobar. 3. Hiatal hernia. 4. T11 compression fracture. 5. Thrush. 6. Osteoporosis. 7. Hypertension. 8. Hypothyroidism. 9. Degenerative disk disease. 10. Gastroesophageal reflux disease. 11. Obesity with a body mass index of 36. PLAN: The patient is currently on Ambien for sleep. She is on Augmentin for antibiotics. She is going to continue with citalopram for her anxiety. The patient is on DuoNebs as needed. She is receiving propranolol. She is on amlodipine for her hypertension. She is on nystatin oral suspension for her thrush. The patient is receiving Os-Carlos for her osteoporosis. The patient is on prednisone daily orally. She is going to continue with Protonix. She is on Remeron for anxiety. She is on Synthroid for hypothyroidism. The patient is on Xanax schedule. She is on a heart-healthy diet. I will get a repeat chest x-ray. She is asking for Lomotil. I will replace her potassium for her hypokalemia. Jeffery Musa MD
[2018-03-29] MEDS: Nystatin 100,000 Units/ml Oral Susp 5 ml UD PO SCH ×4 (10:41→21:28)
[2018-03-29] MEDS: Calcium-Vit D 250 mg-125 Units Tab UD PO SCH (10:41)
[2018-03-29] MEDS: Amoxicillin-Clav 875-125 mg Tab PO SCH ×2 (10:42→21:25)
[2018-03-29] MEDS: Atropine-Diphenoxylate 0.025-2.5 mg Tab PO SCH ×2 (10:45→17:44)
--- NOTE | 2018-03-29 11:28 | RAD ---
Date of service: 03/29/2018 HISTORY: pneumonia COMPARISON: 03/23/2018 TECHNIQUE: Chest PA and lateral FINDINGS: LUNGS: No active pulmonary disease. PLEURA: No significant pleural effusion identified. No pneumothorax apparent. CARDIOVASCULAR: No aortic atherosclerotic calcification present. Mild cardiomegaly no pulmonary vascular congestion. OSSEOUS STRUCTURES: No significant abnormalities. VISUALIZED UPPER ABDOMEN: Normal. OTHER FINDINGS: None. IMPRESSION: No active disease.
[2018-03-29] MEDS: Promethazine DM 6.25 mg-15 mg/5 ml Syrup PO PRN ×2 (14:45→21:30)
[2018-03-29] MEDS: Propranolol 80 mg ER Cap PO SCH (21:27)
[2018-03-30] MEDS: Pantoprazole 40 mg EC Tab PO SCH (05:39)
[2018-03-30] MEDS: Levothyroxine 50 MCG TAB PO SCH (05:39)
[2018-03-30] MEDS: Albuterol-Ipratrop 3 mg / 0.5 (3 ml) UD IH SCH ×2 (07:10→19:37)
[2018-03-30] MEDS: Amoxicillin-Clav 875-125 mg Tab PO SCH ×2 (09:42→22:01)
[2018-03-30] MEDS: Atropine-Diphenoxylate 0.025-2.5 mg Tab PO SCH ×2 (09:43→17:51)
[2018-03-30] MEDS: Calcium-Vit D 250 mg-125 Units Tab UD PO SCH (09:43)
[2018-03-30] MEDS: Nystatin 100,000 Units/ml Oral Susp 5 ml UD PO SCH ×4 (09:43→22:02)
[2018-03-30] MEDS: Promethazine DM 6.25 mg-15 mg/5 ml Syrup PO PRN ×2 (09:49→17:44)
--- NOTE | 2018-03-30 10:12 | PN ---
DATE: 03/30/2018 SUBJECTIVE: The patient has no complaints of any chest pain. No shortness of breath. No headaches or dizziness. She says she is feeling better and walking better. PHYSICAL EXAMINATION: VITAL SIGNS: Temperature is 98.4, pulse is 66, blood pressure is 122/60 and respirations are 20. GENERAL: The patient is lying in bed, flat, comfortable. HEENT: No oral lesion. Anicteric sclerae. Moist mucosa. NECK: No JVD, adenopathy, or thyromegaly. CARDIOVASCULAR: S1 and S2, regular. No murmurs, rubs, or gallops. LUNGS: Clear to auscultation bilaterally. No wheeze, rales, or rhonchi. ABDOMEN: Bowel sounds are positive, soft, nontender and nondistended. EXTREMITIES: No cyanosis, clubbing or edema. ASSESSMENT: 1. Hypokalemia, improved. 2. Community-acquired pneumonia, multilobar. 3. Hiatal hernia. 4. T11 compression fracture. 5. Thrush. 6. Osteoporosis. 7. Hypertension. 8. Hypothyroidism. 9. Degenerative disk disease. 10. Gastroesophageal reflux disease. 11. Obesity with a body mass index of 36. PLAN: The patient is on Ambien for sleep. She is receiving citalopram for her anxiety. She is on nebulizer treatment. She is receiving propranolol. She was given potassium replacement. She is on Norvasc for hypertension. She is on calcium for her vitamin D. She is on Remeron for her anxiety. We will recheck her labs in the morning prior to discharge. Jeffery Musa MD
[2018-03-30] MEDS: Propranolol 80 mg ER Cap PO SCH (22:02)
[2018-03-31] MEDS: Promethazine DM 6.25 mg-15 mg/5 ml Syrup PO PRN ×2 (05:15→14:45)
[2018-03-31] MEDS: Pantoprazole 40 mg EC Tab PO SCH (05:15)
[2018-03-31] MEDS: Levothyroxine 50 MCG TAB PO SCH (05:15)
[2018-03-31] MEDS: Albuterol-Ipratrop 3 mg / 0.5 (3 ml) UD IH SCH (07:12)
[2018-03-31 08:24] LABS: HEMOGLOBIN 13.3 g/dL (12.0-16.0); MEAN CELL VOLUME 94.7 fl (80.0-105.0); MEAN CORPUSCULAR HEMOGLOBIN 29.4 pg (25.0-35.0); MEAN CORPUSCULAR HGB CONC 31.1 g/dl (31.0-37.0); MEAN PLATELET VOLUME 8.9 fl (7.0-11.0); RBC 4.52 10^6/uL (3.5-6.1); RED CELL DISTRIBUTION WIDTH 14.2 % (11.5-14.5); WHITE BLOOD COUNT 21.9 10^3/uL (4.5-11.0)
[2018-03-31 08:42] LABS: ALB/GLOB RATIO 1.1 (1.1-1.8); ALBUMIN 3.8 g/dL (3.0-4.8); ALT/SGPT 42 U/L (7-56); AST/SGOT 23 U/L (14-36); BLOOD UREA NITROGEN 17 mg/dL (7-21); CALCIUM 9.7 mg/dL (8.4-10.5); GFR NON-AFRICAN AMERICAN > 60
[2018-03-31] MEDS: Amoxicillin-Clav 875-125 mg Tab PO SCH (09:44)
[2018-03-31] MEDS: Nystatin 100,000 Units/ml Oral Susp 5 ml UD PO SCH ×2 (09:47→14:17)
[2018-03-31] MEDS: Calcium-Vit D 250 mg-125 Units Tab UD PO SCH (09:47)
[2018-03-31] MEDS: Atropine-Diphenoxylate 0.025-2.5 mg Tab PO SCH (09:47)
[2018-03-31 10:39] VITALS: BP 132/74; PULSE 71; RESP 18; TEMP 98.1; O2SAT 92
[2018-03-31] MEDS ORDERED: Albuterol-Ipratrop 3 mg / 0.5 (3 ml) UD IH PRN (11:42)
--- NOTE | 2018-04-01 04:38 | DS ---
HISTORY OF PRESENT ILLNESS: This is an 82-year-old female who was in the transitional care unit for gait dysfunction and for physical therapy with rehab. The patient had community acquired pneumonia that was multilobar. She had a significant improvement to her symptoms. She was able to ambulate better. Her cough with congestion is starting to improve. The patient is going to be discharged home today. She has no complaints of any chest pain or shortness of breath. She does have cough. I did advise her that her cough may linger on for another 3-4 weeks. PHYSICAL EXAMINATION: VITAL SIGNS: Temperature is 98.1, pulse is 71, blood pressure is 132/74, respirations 18, O2 saturation 92%. GENERAL: The patient is lying in bed, flat, comfortable. HEENT: No oral lesion. Anicteric sclerae. Moist mucosa. NECK: No JVD, adenopathy, or thyromegaly. CARDIOVASCULAR: S1 and S2, regular. No murmurs, rubs, or gallops. LUNGS: Clear to auscultation bilaterally. No wheeze, rales, or rhonchi. ABDOMEN: Bowel sounds are positive, soft, nontender and nondistended. EXTREMITIES: No cyanosis, clubbing or edema. LABORATORY DATA: She has a white count of 21.9. The patient has a potassium of 4. ASSESSMENT: 1. Leukocytosis secondary to steroids. 2. Community acquired pneumonia, multilobar. 3. Hypokalemia, resolved. 4. Hiatal hernia. 5. T11 compression fracture. 6. Thrush, improved. 7. Osteoporosis. 8. Hypertension. 9. Hypothyroidism. 10. Degenerative joint disease. 11. Gastroesophageal reflux disease. 12. Obesity with a body mass index of 36. PLAN: The patient does have an elevated white count. She had a chest x-ray that is improved. She does not have any dysuria. She is clinically improved. The elevated white count is most likely from her steroids. She will no longer require steroids. The patient was given a prescription for an inhaler of albuterol. She can use p.r.n. She is going to follow up with her primary care doctor. She is on calcium for her osteoporosis. She is going to continue with the mirtazapine. The patient needs Synthroid for hypothyroidism. The patient is on Xanax as needed. CONDITION: Stable. ACTIVITY: Increase as tolerated. Jeffery Musa MD
== END 2018-03-31 15:25 | disposition home or self-care (01) | DRG 194 ==
LOC: TRCU 16:23
PROVIDERS: ADMIT Internal Medicine Nephrology; ATTEND Internal Medicine Nephrology
PROC: F07Z9ZZ Gait Training/Functional Ambulation Treatment (ICD-10-PCS; principal; 2018-03-27)
PROC: F07M6ZZ Therapeutic Exercise Treatment of Musculoskeletal System - Whole Body (ICD-10-PCS; 2018-03-27)
PROC: F08Z1ZZ Dressing Techniques Treatment (ICD-10-PCS; 2018-03-27)
PROC: F08Z2ZZ Grooming/Personal Hygiene Treatment (ICD-10-PCS; 2018-03-27)
PROC: F08Z0ZZ Bathing/Showering Techniques Treatment (ICD-10-PCS; 2018-03-27)
PROC: F08Z4ZZ Home Management Treatment (ICD-10-PCS; 2018-03-27)
DX: J18.9 Pneumonia, unspecified organism (principal); M48.54XA Collapsed vertebra, not elsewhere classified, thoracic region, initial encounter for fracture; B37.9 Candidiasis, unspecified; E03.9 Hypothyroidism, unspecified; E66.9 Obesity, unspecified; E78.5 Hyperlipidemia, unspecified; E87.6 Hypokalemia; I10 Essential (primary) hypertension; J06.9 Acute upper respiratory infection, unspecified; K21.9 Gastro-esophageal reflux disease without esophagitis; K44.9 Diaphragmatic hernia without obstruction or gangrene; M19.90 Unspecified osteoarthritis, unspecified site; M81.0 Age-related osteoporosis without current pathological fracture; D72.829 Elevated white blood cell count, unspecified; T38.0X5A Adverse effect of glucocorticoids and synthetic analogues, initial encounter; Z68.36 Body mass index [BMI] 36.0-36.9, adult

== ENCOUNTER 2018-08-23 12:39 | Outpatient (CLI) | payer MEDICARE, OTHER | END 2018-08-23 12:40 | disposition home or self-care (01) | LOC: RAD 12:39 ==